=== PATIENT | born 1950 | race Caucasian/White ===

== ENCOUNTER → 2018-09-01 15:07 | Outpatient (CLI) | payer MEDICARE, SELFPAY ==
[2018-09-02 15:30] LABS: Prothrombin Time Fingerstick 13.5 SEC (11.9-14.4)
[2018-09-09 15:41] LABS: Prothrombin Time Fingerstick 13.6 SEC (11.9-14.4)
[2018-09-17 11:32] LABS: LDH 187 U/L (84-246)
[2018-09-17 11:33] LABS: LDH 675 U/L (84-246)
[2018-09-17 11:33] LABS: LDH 159 U/L (84-246)
[2018-09-17 11:35] LABS: LDH 176 U/L (84-246)
[2018-09-17 11:35] LABS: LDH 266 U/L (84-246)
[2018-10-20 12:02] LABS: White Blood Count 1.5 K/mm3 (4.4-11.0)
[2018-10-23 12:55] LABS: Pathologist Review May follow
[2018-12-18 15:16] LABS: Prothrombin Time Fingerstick 27.2 SEC (11.9-14.4)
[2018-12-20 11:57] LABS: Internal QC Validated? YES +Cl - CLEAR BKGD; Pregnancy, Serum, hCG Quali. POSITIVE Negative; Record Kit Lot#, Serum Preg. 123
[2018-12-24 13:11] LABS: Appearance CSF (character) CLEAR (Clear); Auto B Fluid Analyzer BKGD Ct COUNTS W/IN LIMITS (W/IN LIMITS); Body Fluid QC Type(s) BF1Q; CSF Color COLORLESS (Colorless); Pathologist Review May follow; RBC Count, Spinal Fluid 14 /mm-3 (None seen); Tested Tube # 1; Total Cell Count CSF 0.006 10^3/uL; White Count, CSF 0.005 10^3/uL (0.000-0.005)
[2019-01-13 12:02] LABS: Hepatitis B Surface Antigen Non-Reactive (Nonreactive)
[2019-01-13 12:54] LABS: H.Pylori Breath Test Pat Age 5; H.plyori Ped WT 55
[2019-02-03 14:50] LABS: Hepatitis B Surface Antigen Preliminary Reactive (Nonreactive)
[2019-03-04 03:34] LABS: Pathologist Comment/Body Fluid May follow
[2019-03-04 03:40] LABS: Appearance/Body Fluid CLEAR; Color/Body Fluid COLORLESS; Red Cell Count/Body Fluid 91 /mm3; Source- Body Fluid PLEURAL FLUID
[2019-03-04 03:41] LABS: Neutrophil (Segs) 84 %; White Blood Count/Body Fluid 101 /mm3
[2019-03-04 03:42] LABS: Body Fluid QC Type(s) BF2Q; Lymphocytes 9 %; Monocytes 7 %
[2019-03-09 14:35] LABS: 24HR UR TOTAL VOLUME 900 ml; Calcium Urine pH Range 2; Urine Calcium (Random) < 5.0 (Not Estab.)
[2019-04-12 16:20] LABS: 24HR. UA Prot. Total Volume 1200 mL; Urine Protein (24 Hour) < 6.0 mg/dL (<11.9)
[2019-04-12 16:21] LABS: 24 HR UR TOTAL VOLUME 1200 ML; Microalbumin,Random Urine 6.7 mg/L (NOT. EST.)
[2019-04-20 17:03] LABS: Carbon Dioxide > 45.0 mmol/L (21.0-32.0)
[2019-04-20 17:04] LABS: CRP > 500.00 mg/L (0.0-3.0); Estradiol < 11.0 pg/mL; Folates, (Folic Acid) < 0.50 ng/mL (3.1-55.4); Follicle Stimulating Hormone < 0.2 mIU/mL; Free T3 < 0.5 pg/mL (2.18-3.98)
[2019-04-20 17:07] LABS: CRP < 0.50 mg/L (0.0-3.0); Lipase < 10 U/L (73-393); Potassium < 1.0 mmol/L (3.5-5.1); Sodium Level < 50 mmol/L (136-145)
[2019-04-20 17:08] LABS: Homocysteine < 2.0 umol/L (3.2-10.7); Luteinizing Hormone < 0.2 mIU/mL
[2019-04-20 17:09] LABS: BNP,B-Type NATRIURETIC PEPTIDE < 2.0 pg/mL (0-100); Homocysteine < 2.0 umol/L (3.2-10.7)
[2019-05-02 17:25] LABS: AST(SGOT) < 3 U/L (15-37); Alanine Aminotransfer ALT/SGPT < 6 U/L (13-61); Alkaline Phosphatase < 10 U/L (45-117); Ammonia < 10.0 umol/L (11-32); Amylase < 2 U/L (25-115); Calcium,Total < 5.0 mg/dL (8.5-10.1); Carbon Dioxide < 1.0 mmol/L (21.0-32.0); Chloride < 50 mmol/L (98-107); Cholesterol < 50 mg/dL (200); Iron < 5 ug/dL (50-175); Protein, Total < 2.0 g/dL (6.4-8.2)
[2019-05-03 12:26] LABS: Homocysteine < 2.0 umol/L (3.2-10.7); Lactic Acid < 0.1 mmol/L (0.4-2.0)
[2019-05-22 09:33] LABS: Creatinine, Serum 0.58 mg/dL (0.55-1.30); EST Glomerular Filtration Rate 148 mL/min (>60); Est Glom Filt Rate - Afr Amer 179 mL/min (>60)
[2019-05-29 07:51] LABS: Absolute Lymphocyte Count 1.55 X10^3/uL (0.83-4.51); Absolute Neutrophil Count 8.3 X10^3/uL (2.0-7.7); Basophil# 0.05 X10^3/uL; Basophil% 0.5 % (0-1); Eosinophil# 0.23 X10^3/uL; Eosinophils% 2.1 % (0-5); Hematocrit 33.2 % (37-54); Hemoglobin 11.3 g/dL (13.0-16.5); Lymphocyte # 1.55 X10^3/ul (4.0); Lymphocyte % 14.2 % (19-41); Mean Corpuscular Hgb 31.4 pg (27.0-32.0); Mean Corpuscular Volume 92.2 fL (80-94); Mean Platelet Vol. 10.2 fl (6.2-12.0); Monocyte# 0.61 X10^3/uL; Monocyte% 5.6 % (0-10); NRBC Flagged by Analyzer 0 % (0-5); Neutrophil # 8.32 X10^3/uL (2.7-7.7); Platelet Count 64 K/mm3 (150-450); RBC Distribution Width CV 13.2 % (11.6-14.6); RBC Distribution Width SD 43.9 fl (35.1-43.9); White Blood Count 10.9 K/mm3 (4.4-11.0)
[2019-05-29 09:10] LABS: Absolute Lymphocyte Count 1.62 X10^3/uL (0.83-4.51); Basophil# 0.08 X10^3/uL; Basophil% 0.7 % (0-1); Eosinophil# 0.22 X10^3/uL; Hematocrit 32.8 % (37-54); Hemoglobin 11.2 g/dL (13.0-16.5); Lymphocyte # 1.62 X10^3/ul (4.0); Lymphocyte % 15.1 % (19-41); Mean Corp Hgb Conc 34.1 g/dL (32-36); Mean Corpuscular Hgb 31.6 pg (27.0-32.0); Mean Corpuscular Volume 92.7 fL (80-94); Mean Platelet Vol. 10.5 fl (6.2-12.0); Monocyte# 0.59 X10^3/uL; Monocyte% 5.5 % (0-10); NRBC Flagged by Analyzer 0 % (0-5); Neutrophil # 7.99 X10^3/uL (2.7-7.7); Neutrophil % 74.3 % (47-70); Platelet Count 66 K/mm3 (150-450); RBC Distribution Width CV 13.2 % (11.6-14.6); RBC Distribution Width SD 44.2 fl (35.1-43.9); Red Blood Count 3.54 M/mm3 (4.6-6.2); White Blood Count 10.8 K/mm3 (4.4-11.0)
[2019-08-24 16:58] LABS: Hemoglobin A1c 8.5 % (4.2-6.3)
[2019-08-24 18:13] LABS: Vitamin B12 735 pg/mL (211-911); Vitamin D,25 Hydroxy 34.4 ng/mL (29.95-100.01)
[2019-08-24 21:19] LABS: Homocysteine 10.2 umol/L (3.2-10.7)
[2019-08-25 17:53] LABS: Alkaline Phosphatase 67 U/L (45-117); Amylase 35 U/L (25-115); Iron Binding Capacity,Total 316 ug/dL (250-450); T4 Total, Thyroxin 6.4 ug/dL (4.5-13.9)
[2019-08-25 21:00] LABS: Microalbumin,Random Urine 93.8 mg/L (NO RANGE EST.); Microalbumin:Creatinine Ratio 84.5 mg/g CRE (<30 mg/g CRE)
[2020-03-02 09:35] LABS: Probe Check PASS; Specimen Processing Control PASS
== END ==
PROVIDERS: Visit Provider Pathology Anatomic Pathology & Clinical Pathology
DX: Z00.00 Encounter for general adult medical examination without abnormal findings (principal)
CPT/HCPCS: 36415; 36416; 80048; 80053; 80061; 80076; 80162; 80170; 81002; 82009; 82040; 82043; 82140; 82150; 82247; 82248; 82271; 82306; 82310; 82330; 82340; 82374; 82378; 82435; 82465; 82550; 82565; 82570; 82607; 82670; 82728; 82746; 82947; 82977; 83001; 83002; 83036; 83090; 83540; 83550; 83605; 83615; 83690; 83735; 83880; 84075; 84100; 84132; 84134; 84153; 84156; 84295; 84403; 84436; 84439; 84443; 84450; 84460; 84479; 84480; 84481; 84484; 84550; 84703; 85025; 85048; 85049; 85379; 85610; 86140; 86480; 86592; 86703; 87086; 87340; 87804; 87880; 89050; 89051; G0103